=== PATIENT | male | born 1960 | race Caucasian/White ===

== ENCOUNTER 2018-11-20 21:13 | Inpatient (IN) | payer OTHER, SELFPAY ==
--- NOTE | 2018-11-20 | DI.RAD.S_ITS ---
PROCEDURE: XR CHEST 1V INDICATIONS: CHEST TUBE PLACEMENT TECHNIQUE: One view of the chest was acquired. COMPARISON: None. FINDINGS: Surgical changes and devices: Left thoracostomy tube tip projects over the medial left pulmonary apex/mediastinum. Lungs and pleura: There is a small left pneumothorax. Mild hazy opacities of the left lung noted. Mediastinum: Mediastinal contours appear normal. Heart size is normal. Bones and chest wall: Multiple left-sided rib fractures are identified. IMPRESSION: 1. Left thoracostomy tube tip projects at the medial left pulmonary apex left mediastinum. Small left residual pneumothorax. 2. Multiple left-sided rib fractures. Dictated by: Amarjit Oshea M.D. on 11/20/2018 at 23:04 Approved by: Amarjit Oshea M.D. on 11/20/2018 at 23:05
[2018-11-20 21:15] VITALS: BP 124/74; PULSE 75; RESP 17; TEMP 36.9; O2SAT 98
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
[2018-11-20 21:38] LABS: Add Manual Diff / Slide Review NO; Basophils Absolute Auto 0 /uL (0-100); Basophils Percent Auto 0.6 % (0-2); Eosinophils Absolute Auto 100 /uL (0-450); Eosinophils Percent Auto 1.6 % (2-4); Hematocrit 41.5 % (41-53); Hemoglobin 14.3 g/dL (13.5-17.5); Lymphocytes Absolute Auto 2600 /uL (1100-4500); Lymphocytes Percent Auto 32.2 % (25-40); Mean Corpuscular HGB Conc 34.4 % (30-36); Mean Corpuscular Hemoglobin 32.3 PG (26-34); Monocytes Absolute Auto 500 /uL (0-900); Neutrophils Absolute Auto 4800 /uL (1500-7000); Neutrophils Percent Auto 59.6 % (50-75); Platelet Count 285 X10^3/uL (150-400); Red Blood Cell Count 4.41 X10^6/uL (4.5-5.9); Red Cell Distribution Width 12.5 % (11.6-14.8)
[2018-11-20 21:45] LABS: INR 1.1 (0.9-1.3); Prothrombin Time 12.4 SECONDS (10.1-12.7)
[2018-11-20] MEDS: HYDROMORPHONE 1 MG INJ IV (21:45)
[2018-11-20 21:49] LABS: Alanine Aminotransferase 38 IU/L (21-72); Albumin 4.6 g/dL (3.5-5.0); Albumin Globulin Ratio 1.4 (1.0-2.8); Alkaline Phosphatase 69 U/L (38-126); Aspartate Aminotransferase 36 IU/L (17-59); BUN Creatinine Ratio 18.5 (6-22); Bilirubin Total 0.3 mg/dL (0.2-1.3); Blood Urea Nitrogen 24 mg/dL (9-20); Calcium 9.7 mg/dL (8.4-10.2); Carbon Dioxide 26 mmol/L (22-32); Chloride 100 mmol/L (98-107); Estimated Glomerular Filt Rate 57.1 mL/min (>60); Globulin 3.4 g/dL (1.7-4.1); Glucose 128 mg/dL (70-100); HEMOLYSIS < 15 (0-50); Lipase 293 U/L (23-300); Potassium 3.9 mmol/L (3.4-5.1); Sodium 137 mmol/L (137-145)
[2018-11-20 22:35] VITALS: PULSE 67; RESP 21; O2SAT 95
[2018-11-20] MEDS: SODIUM CHLORIDE 0.9% 1,000 ML 150 ML IV (23:20)
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
[2018-11-20] MEDS: LACTATED RINGERS 1,000 ML 100 ML IV (23:50)
[2018-11-20 23:59] VITALS: BP 88/47; PULSE 74; RESP 17; TEMP 36.6; O2SAT 96
[2018-11-21] VITALS (26 sets, daily range): BP systolic 82–136; BP diastolic 45–85; PULSE 55–69; RESP 13–29; TEMP 36.2–37.2; O2SAT 92–100; BMI 26.5
--- NOTE | 2018-11-21 | PATH_ITS ---
[facility] Accession Number: [id number] . 01 Material submitted: . spleen - SPLEEN . 01 Diagnosis: Spleen, Splenectomy: Spleen with focally avulsed capsule and intraparenchymal hemorrhage, consistent with traumatic laceration. No evidence of neoplasm. MRV/11/28/2018 . 01 Electronically signed: . Christiano Graff MD, PhD, Pathologist NPI- [id number] . 01 Gross description: . Received in formalin, labeled spleen, is a spleen (129 grams, 9.9 x 6.5 x 4.3 cm). The capsule is ricci-purple, smooth, shiny, and focally absent surrounding the hilum. The capsule is focally evulsed with a shaggy hemorrhagic appearence. No lymph nodes are identified. The parenchyma is red-pritchett and smooth with focal hemorrhagic irregular areas. No nodules, masses or lesions are identified. Section code: (A1) hilar structures; (A2-A5) account manager sales representative parenchymal sections. ([id number]) /MRV . 01 Pathologist provided ICD-10: S36.039A . 01 CPT . 323397 Performed at: [address] [facility], [place], [place] [id number] MD Jeronimo Romero MD Phone: [phone]
--- NOTE | 2018-11-21 00:53 | PM.OP.1 ---
Operative Date/Time/Diagnoses Date of procedure: 11/21/18 Time of procedure: 00:53 Pre-op diagnosis: Ruptured spleen Post-op diagnosis: same Procedure & Clinicians Procedure: Exploratory laparotomy with splenectomy Same procedure as scheduled: Yes Indications: Ruptured spleen through the hilum Surgeon: Hamzah Odom Click Yes if Unassisted: Yes Anesthesia Type: General Operative Notes Findings: 800 cc of liquid blood in the left upper quadrant with another 250 cc of clot spleen was cut in half. Closure Type: primary Specimen(s): other (Ruptured spleen) Applied: catheter Estimated Blood Loss (mL): 1,000 Blood products transfused: packed red blood cells (3 units) Procedure in detail: The patient was properly identified during surgical pause prepped and draped in sterile fashion exposure of the upper abdomen midline incision was made the abdomen explored patient had 800 cc of blood in the left upper quadrant that I aspirated with the suction and at least another 250 cc of clot surrounding the spleen. I immediately grasped the spleen with my left hand elevated it up to the wound cross clamped the pedicle with right angle clamps cross clamped the short gastric vessels with right angles and divided the vessels and removed the ruptured spleen the spleen in fact was cut in half. Doubly ligated all the pedicles with 2 0 silk there was excellent hemostasis. irrigated the upper abdomen with numerous L of sterile saline and aspirated dry and till clear inspected the short gastrics and the splenic pedicles they were intact and there was no bleeding I examined the liver which was normal on CT scan and it is normal on intraoperative inspection nasogastric tube was placed during the procedure and secured by the asset manager there being no other findings of injury and no further bleeding I closed the abdominal wall with 1. Maxon irrigated the subcu and stapled the skin sterile dressings were applied the patient was very stable throughout procedure I he had received 2 units of packed cells in the emergency department and we gave 1 more unit during the operation. Therefore he had a total of 3 units of packed cells. Complications: none Condition: stable Disposition: ICU
--- NOTE | 2018-11-21 00:56 | P.OP_ITS ---
Operative Date/Time/Diagnoses Date of procedure: 11/21/18 Time of procedure: 00:53 Pre-op diagnosis: Ruptured spleen Post-op diagnosis: same Procedure & Clinicians Procedure: Exploratory laparotomy with splenectomy Same procedure as scheduled: Yes Indications: Ruptured spleen through the hilum Surgeon: Hamzah Odom Click Yes if Unassisted: Yes Anesthesia Type: General Operative Notes Findings: 800 cc of liquid blood in the left upper quadrant with another 250 cc of clot spleen was cut in half. Closure Type: primary Specimen(s): other (Ruptured spleen) Applied: catheter Estimated Blood Loss (mL): 1,000 Blood products transfused: packed red blood cells (3 units) Procedure in detail: The patient was properly identified during surgical pause prepped and draped in sterile fashion exposure of the upper abdomen midline inci shad was made the abdomen explored patient had 800 cc of blood in the left upper quadrant that I aspirated with the suction and at least another 250 cc of clot surrounding the spleen. I immediately grasped the spleen with my left hand elevated it up to the wound cross clamped the pedicle with right angle clamps cross clamped the short gastric vessels with right angles and divided the vessels and removed the ruptured spleen the spleen in fact was cut in half. Doubly ligated all the pedicles with 2 0 silk there was excellent hemostasis. irrigated the upper abdomen with numerous L of sterile saline and aspirated dry and till clear inspected the short gastrics and the splenic pedicles they were intact and there was no bleeding I examined the liver which was normal on CT scan and it is normal on intraoperative inspection nasogastric tube was placed during the procedure and secured by the ct scan special procedures technologist there being no other findings of injury and no further bleeding I closed the abdominal wall with 1. Maxon irrigated the subcu and stapled the skin sterile dressings were applied the patient was very stable throughout procedure I he had received 2 units of packed cells in the emergency department and we gave 1 more unit during the operation. Therefore he had a total of 3 units of packed cells. Complications: none Condition: stable Disposition: ICU
[2018-11-21] MEDS: LACTATED RINGERS 1,000 ML 100 ML IV ×4 (00:59→22:28)
[2018-11-21] MEDS: SODIUM CHLORIDE 0.9% 1,000 ML 150 ML IV (01:00)
[2018-11-21 03:14] LABS: Bacteria Urine None Seen; WBC Urine None Seen (0-5/HPF)
[2018-11-21] MEDS: HYDROMORPHONE 0.5 MG INJ IV ×12 (03:20→23:54)
[2018-11-21 04:11] LABS: Appearance Urine UA CLEAR; Bilirubin Urine UA NEGATIVE (NEGATIVE); Color Urine UA YELLOW; Glucose Urine UA NEGATIVE (Negative); Ketones Urine UA NEGATIVE (NEGATIVE); Leukocyte Esterase Urine UA NEGATIVE (NEGATIVE); Nitrite Urine UA NEGATIVE (Negative); Occult Blood Urine UA TRACE-INTACT (Negative); Protein Urine UA NEGATIVE (Negative); Urobilinogen Urine UA 0.2 E.U./dL (0.2)
[2018-11-21 04:30] LABS: Culture Indicated Urine Cult Not Indicated; RBC Urine 0-1/HPF (0-5/HPF)
--- NOTE | 2018-11-21 06:22 | PC.NURSE ---
Addendum entered by Melissa Stock R.N. 11/21/18 07:01: notes small hardened area on back of left hand/wrist she states was not there, and wonders if it was x-rayed. Original Note: O2 weaned from 6L simple mask to 2L NC sats in low 90's when asleep and hi 90's when awake. Med q1-1/12 hrs with 0.5mg dilaudid IV with fair results. Trace amount of serosang drainage from CT with decreased Left lung throughout, Right clear, dressing dry and intact to both abd. & CT site, no crepitus noted. NG has scant drainage of brown/green fluid, given 1 ice chip at a time x3 so far.
[2018-11-21 07:17] LABS: Add Manual Diff / Slide Review NO; Basophils Absolute Auto 0 /uL (0-100); Basophils Percent Auto 0.1 % (0-2); Eosinophils Absolute Auto 0 /uL (0-450); Hematocrit 34.5 % (41-53); Hemoglobin 11.9 g/dL (13.5-17.5); Lymphocytes Absolute Auto 500 /uL (1100-4500); Lymphocytes Percent Auto 3.9 % (25-40); Mean Corpuscular HGB Conc 34.5 % (30-36); Mean Corpuscular Hemoglobin 31.5 PG (26-34); Mean Corpuscular Volume 91.2 fL (80-100); Monocytes Absolute Auto 500 /uL (0-900); Neutrophils Absolute Auto 12100 /uL (1500-7000); Platelet Count 178 X10^3/uL (150-400); Red Blood Cell Count 3.79 X10^6/uL (4.5-5.9); Red Cell Distribution Width 14.4 % (11.6-14.8); White Blood Cell Count 13.2 X10^3/uL (4.5-11.0)
[2018-11-21 07:27] LABS: BUN Creatinine Ratio 22.5 (6-22); Blood Urea Nitrogen 18 mg/dL (9-20); Calcium 7.9 mg/dL (8.4-10.2); Carbon Dioxide 23 mmol/L (22-32); Chloride 108 mmol/L (98-107); Estimated Glomerular Filt Rate > 60.0 mL/min (>60); Glucose 144 mg/dL (70-100); HEMOLYSIS < 15 (0-50); Potassium 4.2 mmol/L (3.4-5.1); Sodium 135 mmol/L (137-145)
--- NOTE | 2018-11-21 08:30 | DI.RAD.S_ITS ---
PROCEDURE: XR CHEST 1V INDICATIONS: ptx TECHNIQUE: One view of the chest was acquired. COMPARISON: [facility], CT, CT CHEST ABD PEL W CON, 11/20/2018, 21:18. [facility], CR, XR CHEST 1V, 11/20/2018, 21:12. FINDINGS: Surgical changes and devices: Left-sided chest tube remains projecting over the medial left upper lobe. Nasogastric tube has been placed with distal tip projecting below the hemidiaphragm. Lungs and pleura: Retrocardiac opacity is present. There is overall appearance of increased vascularity. Minimal, questionable residual pneumothorax. Mediastinum: Mediastinal contours appear normal. Heart size is normal. Bones and chest wall: No suspicious bony lesions. Overlying soft tissues appear unremarkable. Multiple left-sided rib fractures. IMPRESSION: 1. Questionable, minimal residual pneumothorax. Dictated by: Liana Sullivan M.D. on 11/21/2018 at 9:21 Approved by: Liana Sullivan M.D. on 11/21/2018 at 9:23
--- NOTE | 2018-11-21 08:37 | PM.PN.1 ---
Subjective Date Patient Seen: 11/21/18 Time Patient Seen: 08:37 Interval history: PATIENT IS ABOUT 7 HOURS POST EXPLORATORY LAPAROTOMY AND SPLENECTOMY FOR RUPTURED SPLEEN THROUGH THE HILUM WITH MASSIVE HEMORRHAGE. HE ALSO HAD A TENSION PNEUMOTHORAX TREATED PREOPERATIVELY WITH A CHEST TUBE LEFT SIDE. SUBJECTIVELY HE IS ALERT ORIENTED OF COURSE HAS ABDOMINAL LEFT-SIDED CHEST PAIN WHICH IS BEING CONTROLLED WITH DILAUDID AT THE MOMENT HE IS COMFORTABLY RESTING IN BED Exam Vital Signs (past 8 hours): - 11/21/18 01:18 11/21/18 01:42 11/21/18 01:44 Temperature 97.1 F L Pulse Rate 55 L 58 L 57 L Respiratory Rate 13 16 16 Blood Pressure 113/53 L 96/45 L Pulse Oximetry 93 96 92 11/21/18 01:59 11/21/18 02:05 11/21/18 02:30 Temperature Pulse Rate 60 58 L 63 Respiratory Rate 18 18 20 Blood Pressure 96/53 L 98/61 93/52 L Pulse Oximetry 99 100 96 11/21/18 02:45 11/21/18 03:11 11/21/18 04:06 Temperature Pulse Rate 63 64 63 Respiratory Rate 20 19 16 Blood Pressure 92/59 L 93/53 L 97/57 L Pulse Oximetry 96 97 97 11/21/18 05:05 11/21/18 06:15 11/21/18 06:16 Temperature Pulse Rate 64 60 58 L Respiratory Rate 13 18 16 Blood Pressure 95/61 96/53 L Pulse Oximetry 96 99 96 Oxygen Delivery Method Nasal Cannula Oxygen Flow Rate 8 Narrative Exam Narrative: VITAL SIGNS ARE MIN STABLE HE IS AFEBRILE BLOOD PRESSURE AT THE MOMENT 96/53 HEART RATE IS 60 HAS FAIRLY EQUAL BREATH SOUNDS BILATERALLY LEFT CHEST TUBE SHOWING NO AIR LEAK ABDOMINAL DRESSING DRY AND INTACT ABDOMEN IS NOT DISTENDED Objective Labs Result Diagrams: 11/21/18 06:20 11/21/18 06:20 Labs: Laboratory Results - last 24 hr 11/20/18 11/20/18 11/20/18 21:00 21:00 21:00 WBC 8.0 RBC 4.41 L Hgb 14.3 Hct 41.5 MCV 94.0 MCH 32.3 MCHC 34.4 RDW 12.5 Plt Count 285 Neut % (Auto) 59.6 Lymph % (Auto) 32.2 [place] % (Auto) 6.0 Eos % (Auto) 1.6 L Baso % (Auto) 0.6 Neut # (Auto) 4800 Lymph # (Auto) 2600 [place] # (Auto) 500 Eos # (Auto) 100 Baso # (Auto) 0 PT 12.4 INR 1.1 Sodium 137 Potassium 3.9 Chloride 100 Carbon Dioxide 26 BUN 24 H Creatinine 1.30 H Estimated GFR 57.1 L BUN/Creatinine Ratio 18.5 Glucose 128 H Calcium 9.7 Total Bilirubin 0.3 AST 36 ALT 38 Alkaline Phosphatase 69 Total Protein 8.0 Albumin 4.6 Globulin 3.4 Albumin/Globulin Ratio 1.4 Lipase 293 Urine Color Urine Appearance Urine pH Ur Specific [place] Urine Protein Urine Glucose (UA) Urine Ketones Urine Occult Blood Urine Nitrate Urine Bilirubin Urine Urobilinogen Ur Leukocyte Esterase Urine RBC Urine WBC Urine Bacteria Ur Culture Indicated? Nasal Screen MRSA (PCR) Blood Type Antibody Screen Crossmatch 11/20/18 11/21/18 11/21/18 21:40 01:45 01:45 WBC RBC Hgb Hct MCV MCH MCHC RDW Plt Count Neut % (Auto) Lymph % (Auto) [place] % (Auto) Eos % (Auto) Baso % (Auto) Neut # (Auto) Lymph # (Auto) [place] # (Auto) Eos # (Auto) Baso # (Auto) PT INR Sodium Potassium Chloride Carbon Dioxide BUN Creatinine Estimated GFR BUN/Creatinine Ratio Glucose Calcium Total Bilirubin AST ALT Alkaline Phosphatase Total Protein Albumin Globulin Albumin/Globulin Ratio Lipase Urine Color Yellow Urine Appearance Clear Urine pH 5.0 Ur Specific [place] 1.020 Urine Protein Negative Urine Glucose (UA) Negative Urine Ketones Negative Urine Occult Blood Trace-intact Urine Nitrate Negative Urine Bilirubin Negative Urine Urobilinogen 0.2 Ur Leukocyte Esterase Negative Urine RBC 0-1/hpf Urine WBC None seen Urine Bacteria None seen Ur Culture Indicated? Cult not indicated Nasal Screen MRSA (PCR) Negative for mrsa Blood Type O Negative Antibody Screen Negative Crossmatch See Detail 11/21/18 11/21/18 06:20 06:20 WBC 13.2 H D RBC 3.79 L Hgb 11.9 L Hct 34.5 L MCV 91.2 MCH 31.5 MCHC 34.5 RDW 14.4 Plt Count 178 Neut % (Auto) 92.0 H D Lymph % (Auto) 3.9 L D [place] % (Auto) 4.0 Eos % (Auto) 0.0 L Baso % (Auto) 0.1 Neut # (Auto) 24163 H Lymph # (Auto) 500 L [place] # (Auto) 500 Eos # (Auto) 0 Baso # (Auto) 0 PT INR Sodium 135 L Potassium 4.2 Chloride 108 H Carbon Dioxide 23 BUN 18 Creatinine 0.80 Estimated GFR > 60.0 BUN/Creatinine Ratio 22.5 H Glucose 144 H Calcium 7.9 L Total Bilirubin AST ALT Alkaline Phosphatase Total Protein Albumin Globulin Albumin/Globulin Ratio Lipase Urine Color Urine Appearance Urine pH Ur Specific [place] Urine Protein Urine Glucose (UA) Urine Ketones Urine Occult Blood Urine Nitrate Urine Bilirubin Urine Urobilinogen Ur Leukocyte Esterase Urine RBC Urine WBC Urine Bacteria Ur Culture Indicated? Nasal Screen MRSA (PCR) Blood Type Antibody Screen Crossmatch Assessment & Plan Assessment & Plan narrative: PATIENT IS IN STABLE CONDITION IMPROVING AFTER SPLENECTOMY FOR SEVERELY RUPTURED SPLEEN IN INTRAPERITONEAL HEMORRHAGE AND TENSION PNEUMOTHORAX. HEMOGLOBIN THIS MORNING 11.9 VITAL SIGNS ARE STABLE CHEST TUBE MINIMAL DRAINAGE NG TUBE MINIMAL OUTPUT PLAN IS TO CONTINUE THE CHEST TUBE AND NG TUBE TO SUCTION. PATIENT IS RECEIVING A FEW ICE CHIPS. PHYSICAL THERAPY HAS BEEN ORDERED TO HELP HIM SET UP AND GET UP INTO A CHAIR TODAY. WE WILL FOLLOW HIS SERIAL HEMOGLOBINS. SERIAL CHEST X-RAYS WERE ORDERED WELL. HE IS RECEIVING AN INCENTIVE SPIROMETER TODAY. DVT PROPHYLAXIS WILL BE WITH SCDS ONLY. I DO NOT WANT TO GIVE HIM LOVENOX. HE DID RECEIVE PNEUMOVAX BEFORE HIS SPLENECTOMY Quality VTE Deep Vein Thrombosis/Pulmonary Embolism Present on Admission: Yes
[2018-11-21] MEDS: PANTOPRAZOLE 40 MG VIAL IV (08:58)
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
--- NOTE | 2018-11-21 23:18 | PC.NURSE ---
2230- Chest tube site saturated. Dressing removed and reinforced. Skin cleaned and patted dry. Will monitor dressing and Chest tube out put.
[2018-11-22] VITALS (15 sets, daily range): BP systolic 105–147; BP diastolic 46–91; PULSE 64–83; RESP 15–29; TEMP 37.2–38.1; O2SAT 90–98
--- NOTE | 2018-11-22 00:04 | PC.NURSE ---
Addendum entered by Carlos Benedict R.N. 11/22/18 06:58: 0600: Chest tube dressing saturated with serosanguinous drainage. Dressing changed: xeroform gauze replaced at insertion. Chest tube secured to dressing. 0645: Medicated for pain with Dilaudid 0.5mg IV. Addendum entered by Carlos Benedict R.N. 11/22/18 04:50: 0420: Awake, took a sip of water, coughing afterwards. Assisted to splint his abdomen. SCDs remain on. Urine remains clear yellow/light olga lidia. Pt states he is having 7/10 pain at site of chest tube insertion. Medicated with Dilaudid 0.5mg IV. Addendum entered by Carlos Benedict R.N. 11/22/18 02:27: 0215: Awake, vital signs stable. States he is having 7/10 pain. Medicated with Dilaudid 0.5mg IV. Pt states the last dose was effective. Assisted to shift his position. Addendum entered by Carlos Benedict R.N. 11/22/18 01:31: 0130: Sleeping, arousable. O2 sat 98% on 2L/NC. Chest tube dressing has small amt serosanguinous drainage at insertion site. Original Note: Check Clerk Note: 0000: Awake, resting in bed. Oriented X3. IVs in place in rt upper arm, rt AC, and lt AC. LR infusing in rt upper arm IV at 100cc/hr. Ho catheter patent, with clear yellow urine. NGT in place and secured to nose with tape, remains on continuous low suction as ordered. Lt chest tube intact, dressing cdi; small amt serosanguinoous drainage is in tubing. Midline abdominal dressing is cdi. Pt states he is having 7/10 pain at this time. Medicated with Dilaudid 0.5mg IV. Remains on O2 2L/NC. at bedside.
[2018-11-22] MEDS: HYDROMORPHONE 0.5 MG INJ IV ×9 (02:09→22:13)
[2018-11-22] MEDS: HYDROMORPHONE 2 MG INJ 1 MG IV (07:35)
[2018-11-22 07:44] LABS: Add Manual Diff / Slide Review NO; Basophils Absolute Auto 100 /uL (0-100); Basophils Percent Auto 0.6 % (0-2); Eosinophils Absolute Auto 0 /uL (0-450); Eosinophils Percent Auto 0.1 % (2-4); Hematocrit 29.7 % (41-53); Hemoglobin 10.1 g/dL (13.5-17.5); Lymphocytes Absolute Auto 2100 /uL (1100-4500); Lymphocytes Percent Auto 15.8 % (25-40); Mean Corpuscular Hemoglobin 31.2 PG (26-34); Mean Corpuscular Volume 91.8 fL (80-100); Monocytes Absolute Auto 1000 /uL (0-900); Monocytes Percent Auto 7.9 % (3-14); Neutrophils Absolute Auto 9800 /uL (1500-7000); Neutrophils Percent Auto 75.6 % (50-75); Platelet Count 167 X10^3/uL (150-400); Red Blood Cell Count 3.24 X10^6/uL (4.5-5.9)
[2018-11-22] MEDS: LACTATED RINGERS 1,000 ML 100 ML IV (08:32)
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
[2018-11-22] MEDS: KETOROLAC 30 MG/ML VIAL IV ×3 (10:59→22:16)
[2018-11-22] MEDS: DEXTROSE 5%-0.45% NS 1,000 ML 84 ML IV ×2 (10:59→23:02)
[2018-11-22] MEDS: GABAPENTIN 300 MG CAPSULE PO ×3 (10:59→20:40)
[2018-11-22] MEDS: PANTOPRAZOLE 40 MG VIAL IV (11:06)
--- NOTE | 2018-11-22 11:25 | CM.DPC ---
DCP Cont: Spoke to Yesica, ICU nurse taking care of patient today. has not been in room as of yet. She anticipates that patient will be here for a few more days. He has not yet been up, but she stated that he could possibly be up today. Discussed with physical therapy in team rounds, and they will anticipate working with him when he is medically stable. P: DCP to continue to follow closely. Will check in again tomorrow with patient, or spouse as well, to be available for any discharge plan concerns. Shreya Harrington RN/Senior Professional Services Consultant
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
--- NOTE | 2018-11-22 13:31 | PC.NURSE ---
pt reports better pain control with addition of toradol and gabapentin this am by Dr. Lindsey, have decreased need for as much iv dilaudid or as often. taking clear liquids with problem after removal of ngt this am. Did ambulate to entry way of unit and back to chair where he sat for approx 30-45 minutes. chest tube dressing taken down to skin and reapplied due to large amount of bloody red drainage. he remains in nsr and zhang patent as well as scd's in place-o2 decreased to 1l nc spo2 92%
--- NOTE | 2018-11-22 17:01 | PC.NURSE ---
Addendum entered by Sigrid Valentin R.N. 11/22/18 21:00: temp up to 100F. Pt used incentive spirometer to 3000 ml. Original Note: shahbaz note pt has limited range of motion to left arm.Chest tube drsg is CDI, no crepitus palpated. Uses incentive spirometer correctly achieving 2500 ml. Denies N/V with clear liquid diet.
[2018-11-23] VITALS (15 sets, daily range): BP systolic 113–134; BP diastolic 57–79; PULSE 67–80; RESP 12–20; TEMP 36.7–37.6; O2SAT 92–96
[2018-11-23] MEDS: HYDROMORPHONE 1 MG INJ IV ×2 (04:12→07:45)
[2018-11-23] MEDS: KETOROLAC 30 MG/ML VIAL IV ×3 (05:39→21:50)
--- NOTE | 2018-11-23 06:13 | PC.NURSE ---
Patient dozed intermittently, pain controlled with scheduled IV Toradol and prn IV Dilaudid, see Emar. RR 16-24, SpO2 >94% on 1L NC, Lt chest tube patent to 20cm sx, no air leaks, all connections intact, drsg D/I, increased shadowing by am but not seeping through, breath sounds clear, diminished on Lt. SR, Temp 99.-100.6, cold clothe to forehead, using I.S. See assessment notes.
[2018-11-23 07:40] LABS: Add Manual Diff / Slide Review NO; Basophils Absolute Auto 100 /uL (0-100); Basophils Percent Auto 0.7 % (0-2); Eosinophils Absolute Auto 0 /uL (0-450); Eosinophils Percent Auto 0.4 % (2-4); Hematocrit 25.6 % (41-53); Hemoglobin 8.9 g/dL (13.5-17.5); Lymphocytes Absolute Auto 1400 /uL (1100-4500); Lymphocytes Percent Auto 13.4 % (25-40); Mean Corpuscular HGB Conc 34.7 % (30-36); Mean Corpuscular Hemoglobin 32.2 PG (26-34); Mean Corpuscular Volume 92.6 fL (80-100); Monocytes Absolute Auto 900 /uL (0-900); Monocytes Percent Auto 8.9 % (3-14); Neutrophils Absolute Auto 8000 /uL (1500-7000); Neutrophils Percent Auto 76.6 % (50-75); Platelet Count 169 X10^3/uL (150-400); Red Blood Cell Count 2.76 X10^6/uL (4.5-5.9); Red Cell Distribution Width 13.7 % (11.6-14.8); White Blood Cell Count 10.5 X10^3/uL (4.5-11.0)
[2018-11-23] MEDS: GABAPENTIN 300 MG CAPSULE PO ×2 (08:01→10:39)
--- NOTE | 2018-11-23 08:07 | DI.RAD.S_ITS ---
PROCEDURE: XR CHEST 1V INDICATIONS: PTX TECHNIQUE: One view of the chest was acquired. COMPARISON: [facility], CT, CT CHEST ABD PEL W CON, 11/20/2018, 21:18. [facility], CR, XR CHEST 1V, 11/21/2018, 8:42. FINDINGS: Surgical changes and devices: There is a left thoracostomy tube with the tip near the pulmonary apex. Lungs and pleura: Lungs are clear. No pleural effusions. There may be trace pneumothorax at the left lung base. No apical pneumothorax. Mediastinum: Mediastinal contours appear normal. Heart size is normal. Bones and chest wall: No suspicious bony lesions. Overlying soft tissues appear unremarkable. IMPRESSION: Probable trace pneumothorax at the left lung base. No apical pneumothorax appreciated. Dictated by: Roxana Osman M.D. on 11/23/2018 at 7:05 Approved by: Roxana Osman M.D. on 11/23/2018 at 7:07
--- NOTE | 2018-11-23 08:50 | CM.DPC ---
DCP Cont: Checked in with patient and his significant other, Rosa. Pleasant couple. Patient sitting up in bed, alert and oriented. He had started working with physical therapy yesterday. Introduced self and role, and let them know that case management is available for any resources that he may need, such as home health. Spoke to nurse, Yesica, who stated that patient may need orthopedic follow up. P: DCP to continue to follow closely and offer support and resources needed. Shreya Harrington RN/Reel Cart Operator
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
[2018-11-23] MEDS: OXYCODONE/ACETAMINOPHEN 5/325 TABLET 2 TAB PO ×4 (10:10→19:21)
[2018-11-23] MEDS: POLYETHYLENE GLYCOL 3350 17 GM POWD.PACK PO (10:39)
[2018-11-23] MEDS: PANTOPRAZOLE 40 MG VIAL IV (10:43)
[2018-11-23] MEDS: DEXTROSE 5%-0.45% NS 1,000 ML 50 ML IV (10:46)
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
--- NOTE | 2018-11-23 11:25 | DI.CT.S_ITS ---
PROCEDURE: CT UE LT WO CON INDICATIONS: CT scan of left scapula TECHNIQUE: Noncontrast 1-1.5 mm thick sections acquired from the acromioclavicular joint to the inferior scapula, with coronal and sagittal reformatting. COMPARISON: None. FINDINGS: Image quality: Excellent. Bones: There is a sagittally oriented fracture which extends to the body of the scapula to the scapular spine. The glenoid is intact. Visualized portions of the humerus are intact. The acromioclavicular joint is intact. The clavicle is intact. There are displaced comminuted, posterior left sixth-eighth rib fractures (the more inferior ribs are not visualized on this study]. Soft tissues: There is a trace apical pneumothorax and there is likely a trace anterior inferior pneumothorax which is poorly characterized on this limited view of the lung base. There is a small low-density pleural effusion which is incompletely characterized. Consolidation or compressive atelectasis is partially visualized at the lung base. A thoracostomy tube is present, the tip of which is near the pulmonary apex. IMPRESSION: 1. Minimally displaced scapular fracture. 2. Multiple posterior displaced left rib fractures. 3. Trace basilar pneumothorax which is incompletely characterized on this limited view of the lung base. 4. Left pleural effusion and basilar consolidation or atelectasis which is incompletely characterized. Dictated by: Roxana Osman M.D. on 11/23/2018 at 11:51 Approved by: Roxana Osman M.D. on 11/23/2018 at 12:00
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
--- NOTE | 2018-11-23 13:33 | PC.NURSE ---
pt transferred to floor care status this shift - transitioned to po percocet as well as increased gabapentin dose - pt rates pain 4-10/13 which is an improvement form yesterday- more mobile today and using IS up to 2400 mls- lungs with better air movement and able to be off o2 all this shift.CT to left shoulder scapula area complete - no further orders per that other than ortho consult- diet increased and tolerating well passing flatus and ivf decreased per md order tmax this shift 99.0
[2018-11-23] MEDS: GABAPENTIN 600 MG TABLET PO ×2 (14:33→21:50)
[2018-11-23] MEDS: HYDROMORPHONE 0.5 MG INJ IV (22:00)
[2018-11-24] VITALS (10 sets, daily range): BP systolic 122–142; BP diastolic 64–94; PULSE 64–86; RESP 16–20; TEMP 36.4–37.2; O2SAT 94–99
[2018-11-24] MEDS: OXYCODONE/ACETAMINOPHEN 5/325 TABLET 2 TAB PO ×2 (00:26→04:38)
--- NOTE | 2018-11-24 00:31 | PC.NURSE ---
Network Associate Note: 0000: Sleeping; respirations unlabored. resting at bedside. Not disturbed at this time. 0020: Awake, asking for assistance to get up to bathroom. Steady on his feet. Vital signs stable. Chest tube intact, with dressing cdi; continues to suction. IVs in rt upper arm and lt AC are in place; D5 1/2 NS infusing at 50cc/hr in rt upper arm IV. 0030: Pt states his pain is coming back; medicated for pain with 2 Percocet.
[2018-11-24] MEDS: DEXTROSE 5%-0.45% NS 1,000 ML 50 ML IV (04:39)
[2018-11-24] MEDS: KETOROLAC 30 MG/ML VIAL IV ×2 (06:31→14:55)
--- NOTE | 2018-11-24 08:18 | DI.RAD.S_ITS ---
PROCEDURE: XR CHEST 1V INDICATIONS: chest tube management TECHNIQUE: One view of the chest was acquired. COMPARISON: [facility], CT, CT CHEST ABD PEL W CON, 11/20/2018, 21:18. [facility], CR, XR CHEST 1V, 11/23/2018, 7:43. [facility], CR, XR CHEST 1V, 11/21/2018, 8:42. FINDINGS: Surgical changes and devices: Chest tube on the left stable over time. Lungs and pleura: Lungs are clear. No pleural effusions or apical pneumothorax. As was previously the case there is a lucency at the left lung base potentially a manifestation of a small subpulmonic pneumothorax. Mediastinum: Mediastinal contours appear normal. Heart size is normal. Bones and chest wall: No suspicious bony lesions. Overlying soft tissues appear unremarkable. IMPRESSION: Chest tube in normal position. No apical pneumothorax. Thin crescent of lucency along the left lung base area as it abuts the diaphragm may reflect subpulmonic persistent very small pneumothorax. Depending on the clinical status CT scanning could be utilized to more accurately assess for residual pneumothorax and also to detect sub-diaphragmatic free air. Dictated by: Yan Becerra M.D. on 11/24/2018 at 8:59 Approved by: Yan Becerra M.D. on 11/24/2018 at 9:02
[2018-11-24] MEDS: OXYCODONE IR 5 MG TABLET 10 MG PO ×4 (08:35→21:18)
[2018-11-24] MEDS: GABAPENTIN 600 MG TABLET PO ×3 (08:37→21:13)
[2018-11-24] MEDS: POLYETHYLENE GLYCOL 3350 17 GM POWD.PACK PO ×2 (08:37→21:13)
[2018-11-24] MEDS: PANTOPRAZOLE 40 MG VIAL IV (08:38)
--- NOTE | 2018-11-24 08:46 | CM.DPC ---
DCP: continued: Case received and EMR reviewed for last few days. PT is now seeing ptgloria for first time yesterday. OT order is obtained to help in the overall recovery of pt and d/c planning process. A scapular fracture was identified and orthopedic team is consulting. Met with pt's Rosa in ICU setting (pt is on floor care as of yesterday per LUNA Umana) while pt was receiving care. Today Rosa is smiling and says she is so very pleased with her husbands progress and the care he is getting at the hospital. P: will discuss case in Team Rounds and be following to assist with d/c issues and options.
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
--- NOTE | 2018-11-24 11:37 | P.PN_ITS ---
Subjective Date Patient Seen: 11/24/18 Time Patient Seen: 11:36 Interval history: Pain well controlled. No complaints. Exam Vital Signs (past 8 hours): - 11/24/18 04:40 11/24/18 08:35 11/24/18 08:49 Temperature 98.2 F 98.0 F 98.0 F Pulse Rate 86 72 Respiratory Rate 20 19 Blood Pressure 136/79 130/64 Pulse Oximetry 99 96 11/24/18 09:09 Temperature 98.0 F Pulse Rate Respiratory Rate Blood Pressure Pulse Oximetry Oxygen Delivery Method Room Air Oxygen Flow Rate 0 Narrative Exam Narrative: 58-year-old male sitting at bed in no apparent distress. Sensation motor function intact distal left upper extremity. Objective Labs Result Diagrams: 11/23/18 07:10 11/21/18 06:20 Labs: Laboratory Results - last 24 hr 11/20/18 21:40 Crossmatch See Detail Assessment & Plan Assessment & Plan narrative: Minimally displaced scapular fracture, left. Sling for comfort. Follow-up [facility] in 2 weeks. Quality VTE Deep Vein Thrombosis/Pulmonary Embolism Present on Admission: Yes
[2018-11-24] MEDS: ACETAMINOPHEN 325 MG TABLET 650 MG PO ×3 (12:51→23:43)
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
[2018-11-24] MEDS: METHOCARBAMOL 500 MG TABLET PO ×2 (16:04→21:13)
--- NOTE | 2018-11-24 16:52 | DI.RAD.S_ITS ---
PROCEDURE: XR CHEST 1V INDICATIONS: Chest tube management TECHNIQUE: One view of the chest was acquired. COMPARISON: [facility], CR, XR CHEST 1V, 11/24/2018, 8:22. [facility], CR, XR CHEST 1V, 11/23/2018, 7:43. FINDINGS: Surgical changes and devices: Left-sided chest tube extends towards the left apex. Lungs and pleura: Lungs are clear. No pleural effusions or pneumothorax. Mediastinum: Mediastinal contours appear normal. Heart size is normal. Bones and chest wall: No suspicious bony lesions. Overlying soft tissues appear unremarkable. IMPRESSION: Normal positioning of left-sided chest tube, no pneumothorax is found. Dictated by: Yan Becerra M.D. on 11/24/2018 at 17:10 Approved by: Yan Becerra M.D. on 11/24/2018 at 17:11
--- NOTE | 2018-11-24 18:47 | PC.NURSE ---
Addendum entered by Loli Aiken R.N. 11/24/18 19:46: 1945 - Report given to LUNA Varghese. Pt to be transferred to room 204. Original Note: 1845 - Pt up to ambulate in halls, pt assist with chest tube. Reinforced safety.
[2018-11-24] MEDS: HEPARIN 5,000 UNIT/ML VIAL 5000 UNIT SUBCUT (21:13)
[2018-11-24] MEDS: CELECOXIB 100 MG CAPSULE PO (21:13)
--- NOTE | 2018-11-24 22:08 | PC.NURSE ---
Pt transferred to floor from ICU @ 1999; chest tube to gravity, no suction; drsg to left chest serosanguineous; BLLS clear, O2 RA=96%; mid-line incision well-approximated with lorelei and open to air; abrasions to knee, elbow and face open to air, moist with neosporin; mild to moderate pain to left rib cage, PO 10 mg Oxycodone; BTs present, Miralax administered
[2018-11-25] VITALS (8 sets, daily range): BP systolic 116–165; BP diastolic 64–92; PULSE 65–95; RESP 14–18; TEMP 36.6–37.4; O2SAT 93–97
--- NOTE | 2018-11-25 00:16 | PC.NURSE ---
Addendum entered by Ebony Guzman R.N. 11/25/18 06:52: Now states pain has increased to 6/10; medicated with Oxycodone. Addendum entered by Ebony Guzman R.N. 11/25/18 06:24: Slept at intervals. States pain on left side of body continues at 5/10; medicated with scheduled Tylenol and requests Oxycodone when next due. Addendum entered by Ebony Guzman R.N. 11/25/18 02:45: Complaining of 8/10 left sided body pain; medicated with Oxycodone. Original Note: Patient is alert and oriented. Breath sounds diminished in right mid/lower lobes and left lower lobe with fine inspiratory crackles in left middle lobe. Denies SOB at rest or with exertion. RA sat 95%. Chest tube intact to water seal with serosanguinous drainage. Dressing at shift change mostly saturated with serosanguinous drainage so changed per LUNA Ramirez. HRR with BP elevated at 141/81. Denies nausea. BT present and states he is passing flatus but has not had BM since 11/20; Miralax increased to BID yesterday. Denies dysuria, frequency or urgency. Mobilizing independently. Scabbed abrasions noted on left side of face, left UE and small abrasion on left lateral knee. Complains of 5/10 pain on entire left side of body and states it is tolerable; medicated with scheduled Tylenol. Declines use of SCD's despite information re: DVT prevention so reminded to ankle wave while awake. Fall risk score is moderate.
[2018-11-25] MEDS: OXYCODONE IR 5 MG TABLET 10 MG PO ×5 (02:39→20:26)
[2018-11-25] MEDS: ACETAMINOPHEN 325 MG TABLET 650 MG PO ×3 (06:17→19:05)
[2018-11-25] MEDS: HEPARIN 5,000 UNIT/ML VIAL 5000 UNIT SUBCUT ×3 (06:17→21:35)
--- NOTE | 2018-11-25 08:25 | DI.RAD.S_ITS ---
PROCEDURE: XR CHEST 1V INDICATIONS: Chest tube management TECHNIQUE: One view of the chest was acquired. COMPARISON: [facility], CR, XR CHEST 1V, 11/24/2018, 16:52. FINDINGS: Surgical changes and devices: Stable position of left-sided chest tube. Partially imaged midline skin lorelei in the epigastric region. Lungs and pleura: Lung volumes are low with bibasilar atelectatic changes, left worse than right, stable compared to prior.. No pleural effusions or pneumothorax. Mediastinum: Mediastinal contours appear normal. Heart size is normal. Bones and chest wall: No suspicious bony lesions. Overlying soft tissues appear unremarkable. IMPRESSION: 1. Stable position of left chest tube without pneumothorax. 2. Dense bibasilar atelectatic changes with low lung volumes, likely due to splinting. Dictated by: Gabriella Vargas M.D. on 11/25/2018 at 9:19 Approved by: Gabriella Vargas M.D. on 11/25/2018 at 9:20
[2018-11-25] MEDS: POLYETHYLENE GLYCOL 3350 17 GM POWD.PACK PO ×2 (08:42→20:26)
[2018-11-25] MEDS: CELECOXIB 100 MG CAPSULE PO ×2 (08:43→20:26)
[2018-11-25] MEDS: GABAPENTIN 600 MG TABLET PO ×3 (08:43→20:26)
[2018-11-25] MEDS: METHOCARBAMOL 500 MG TABLET PO ×4 (08:43→20:26)
[2018-11-25] MEDS: PANTOPRAZOLE 40 MG VIAL IV (08:44)
[2018-11-25] MEDS: SODIUM CHLORIDE 0.9% FLUSH 10 ML IV ×2 (08:45→20:34)
[2018-11-25] MEDS: MENINGOCOCCAL VACCINE 0.5 ML VIAL IM (10:08)
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
--- NOTE | 2018-11-25 13:00 | DI.RAD.S_ITS ---
PROCEDURE: XR CHEST 1V INDICATIONS: chest tube management - clamp trial, take at 1p TECHNIQUE: One view of the chest was acquired. COMPARISON: [facility], CT, CT CHEST ABD PEL W CON, 11/20/2018, 21:18. [facility], CR, XR CHEST 1V, 11/23/2018, 7:43. [facility], CT, CT CERVICAL SPINE WO CON, 11/20/2018, 21:18. [facility], CR, XR CHEST 1V, 11/20/2018, 21:12. [facility], CR, XR CHEST 1V, 11/24/2018, 8:22. [facility], CR, XR CHEST 1V, 11/24/2018, 16:52. [facility], CR, XR CHEST 1V, 11/25/2018, 8:32. FINDINGS: Surgical changes and devices: Stable position of left thoracostomy tube. Skin lorelei and upper abdomen and midline Lungs and pleura: There is probable trace left apical pneumothorax. Left basilar consolidation or atelectasis. Mediastinum: Mediastinal contours appear normal. Heart size is normal. Bones and chest wall: No suspicious bony lesions. Overlying soft tissues appear unremarkable. IMPRESSION: 1. Probable trace left pneumothorax. 2. Left basilar consolidation or atelectasis. Dictated by: Loni Kessler M.D. on 11/25/2018 at 14:35 Approved by: Loni Kessler M.D. on 11/25/2018 at 14:42
[2018-11-25] MEDS: HYDROMORPHONE 1 MG INJ IV (13:51)
--- NOTE | 2018-11-25 15:43 | PM.PN.1 ---
Subjective Date Patient Seen: 11/25/18 Time Patient Seen: 15:43 Interval history: Patient's pain has been more moderate in nature today. Denies numbness and tingling left upper extremity. Chest tube removed by General surgery earlier today. Patient otherwise without complaints. Exam Vital Signs (past 8 hours): - 11/25/18 07:44 11/25/18 11:00 11/25/18 15:00 Temperature 99.1 F 98.6 F 97.8 F Pulse Rate 95 H 65 76 Respiratory Rate 16 16 14 Blood Pressure 151/84 H 126/91 H 133/75 Pulse Oximetry 97 95 93 Oxygen Delivery Method Room Air Oxygen Flow Rate 0 Narrative Exam Narrative: 58-year-old male resting comfortably in bed in no apparent distress. Motor functions intact distal left upper extremity. Sensation is grossly intact to the left upper extremity. Left arm is warm and dry. Objective Labs Result Diagrams: 11/23/18 07:10 11/21/18 06:20 Assessment & Plan Assessment & Plan narrative: Continue sling for comfort. Follow-up [facility] in 10-14 days. Orthopedics will sign off for now. Quality VTE Deep Vein Thrombosis/Pulmonary Embolism Present on Admission: Yes
--- NOTE | 2018-11-25 17:00 | DI.RAD.S_ITS ---
PROCEDURE: XR CHEST 1V INDICATIONS: chest tube removed TECHNIQUE: One view of the chest was acquired. COMPARISON: [facility], CR, XR CHEST 1V, 11/25/2018, 12:56. FINDINGS: Surgical changes and devices: There has been interval removal of left-sided chest tube. Lungs and pleura: Increased vascularity as well as patchy left basilar opacities are noted. No definitive pneumothorax. Mediastinum: Mediastinal contours appear normal. Heart size is normal. Bones and chest wall: No suspicious bony lesions. Overlying soft tissues appear unremarkable. IMPRESSION: Removal of left chest tube without a visualized pneumothorax. Dictated by: Liana Sullivan M.D. on 11/25/2018 at 17:42 Approved by: Liana Sullivan M.D. on 11/25/2018 at 17:43
[2018-11-25] MEDS: HYDROMORPHONE 0.5 MG INJ 1 MG IV (18:40)
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
[2018-11-26] MEDS: ACETAMINOPHEN 325 MG TABLET 650 MG PO ×2 (00:30→06:08)
[2018-11-26] MEDS: OXYCODONE IR 5 MG TABLET 10 MG PO ×3 (00:32→08:17)
[2018-11-26 03:40] VITALS: BP 108/64; PULSE 67; RESP 16; TEMP 37.2; O2SAT 96
[2018-11-26] MEDS: HEPARIN 5,000 UNIT/ML VIAL 5000 UNIT SUBCUT (06:08)
[2018-11-26 07:00] VITALS: BP 116/74; PULSE 66; RESP 17; TEMP 36.8; O2SAT 96
[2018-11-26] MEDS: GABAPENTIN 600 MG TABLET PO (08:16)
[2018-11-26] MEDS: CELECOXIB 100 MG CAPSULE PO (08:16)
[2018-11-26] MEDS: METHOCARBAMOL 500 MG TABLET PO (08:16)
[2018-11-26] MEDS: PANTOPRAZOLE 40 MG VIAL IV (08:17)
[2018-11-26] MEDS: POLYETHYLENE GLYCOL 3350 17 GM POWD.PACK PO (08:17)
[2018-11-26] MEDS: SODIUM CHLORIDE 0.9% FLUSH 10 ML IV (08:17)
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
== END 2018-11-26 14:35 | disposition home or self-care (01) | DRG 958 ==
LOC: ED 21:59 → AC 23:06 → ICU 11-21 01:16 → AC 11-24 19:29
PROVIDERS: Anesthesiology; Admitting Provider Surgery; Emergency Provider Emergency Medicine; Visit Provider Surgery
DX: S36.032A Major laceration of spleen, initial encounter (principal); S22.42XA Multiple fractures of ribs, left side, initial encounter for closed fracture; S27.0XXA Traumatic pneumothorax, initial encounter; S27.321A Contusion of lung, unilateral, initial encounter; I95.9 Hypotension, unspecified; S42.192A Fracture of other part of scapula, left shoulder, initial encounter for closed fracture; I10 Essential (primary) hypertension; V20.4XXA Motorcycle driver injured in collision with pedestrian or animal in traffic accident, initial encounter; Y92.410 Unspecified street and highway as the place of occurrence of the external cause
CPT/HCPCS: 32551; 36415; 36430; 38100; 70450; 71045; 71260; 72125; 73200; 74177; 80048; 80053; 81001; 83690; 85025; 85610; 86850; 86900; 86901; 87797; 90734; 93005; 94760; 94762; 96361; 96374; 97116; 97161; 97165; 97530; 99222; 99282; 99291; 99292; P9016; C9113; J0330; J1100; J1170; J1644; J1885; J2250; J2405; J3010